=== PATIENT | female | born 2005 | race Caucasian/White ===

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

== ENCOUNTER 2025-05-10 17:31 | Outpatient (CLI) | payer OTHER, SELFPAY | END 2025-05-10 17:32 | disposition home or self-care (01) | LOC: AMB 05-13 10:32 | PROVIDERS: Visit Provider Family Medicine | DX: R41.82 Altered mental status, unspecified (principal); F03.90 Unspecified dementia, unspecified severity, without behavioral disturbance, psychotic disturbance, mood disturbance, and anxiety | CPT/HCPCS: A0425; A0427 ==

== ENCOUNTER 2025-05-10 17:56 | Emergency (ER) | payer OTHER, SELFPAY ==
[2025-05-10] VITALS (25 sets, daily range): BP systolic 119–145; BP diastolic 79–102; PULSE 99–144; RESP 0–26; TEMP 36.4; O2SAT 80–100
--- OUTSIDE RECORDS SUMMARY | 2025-05-10 17:58 | XMS_ITS | Data Portability ---
Author Organization ELAINE Lund NURSES DIRECTOR, [id number] Address [address] [place] [address] Care Team Providers Care Psychologist Military Personnel Name Role Phone TONNY HOLT Primary Care Provider [phone] Assessment Encounter Date Assessment Date Assessment LastModified [...] qual, IA, serum or plasma [address] [facility], [address] [place] [address], [address], [place], [address], 4 11:02:04 HBsAg (hepatitis B surface Ag), serum [address] [facility], [address], [address], [place], [address], 4 11:02:06 HIV 1+2 AB + HIV 1 p24 Ag, qualitative immunoassay , serum [address] [facility], [address], [address], [place], [address], 4 11:01:58 treponema pallidum Ab, qualitative , serum [address] [facility], [address], [address], [place], [address], 4 11:02:10 CT + NG DNA, PCR, unspecified specimen [address] [facility], [address], [address], [place], [address], 4 11:35:59 bacterial vaginosis + vaginitis panel, vaginal 2023 024 [id number]_skxwspj rtners_lilyda le, [address] [place] [address], [address] [place] [address], [address], 4 17:01:22 lipid panel, serum [address] [facility], [address], [address], [place], [address], 3 21:59:13 urinalysis, dipstick, auto 2022 023 Zm416_momklze rtners_lilyda le, [address] [place] [address], [address], [place], [address], 3 16:27:57 hemoglobin (Hb), blood 2022 023 Bz355_iadyiee rtners_lilyda le, [address] [place] [address], [address] [place] [address], [address], 3 16:27:57 test, urine 2022 023 [facility] Ze176_wjqbhmn gregg_flaca pak, [address] [facility], [address], [place], [address], 13:22:39 CT + NG DNA, PCR, unspecified specimen [address] [facility], [address], [address], [place], [address], 11:56:00 Referral None recorded. Procedures None recorded. Surgeries None recorded. Imaging None recorded. Medication Orders Loestrin Fe 1/20 (28-Day) 1 mg-20 mcg (21)/75 mg (7) tablet 2022 023 [facility], [address] [place], [place], [id number], 16:27:57 Loestrin Fe 1/20 (28-Day) 1 mg-20 mcg (21)/75 mg (7) tablet 2022 023 [facility], [address] [place], [place], [phone], 13:22:39 norethindro ne (contracept romain) 0.35 mg tablet 2021 022 [facility] #94195, [address] [place], [place], [phone], 13:50:26 Patient TargetsNo targets recorded. Patient Instructions Encounter Date Encounter Id Patient Instructions Last Modified By Organization Details Last Modified Time 08/21/2023 [id number] venous blood draw* Not available 08/21/2023 13:03:17 05/27/2024 [id number] venous blood draw* Not available 05/27/2024 13:30:10 [...] rRNA to be detec angus. Not Available [address], [place], [address], 01/30/2023 11:56:00 01/30/20 23 01/29/2023 GC/CH LAMYD [...] Urine Urine , Voide d Not Available [address], [place], [address], 01/30/2023 11:56:00 06/04/20 23 06/04/2023 pregn arminda test, urine Unknown Analyte negati ve Not Available Kayleigh pak [address] [place] [address] [address], [place], [address], 06/04/2023 12:22:07 06/04/20 23 06/04/2023 pregn arminda test, urine Unknown Analyte Negati ve Not Available Kayleigh mesaa le [address] [facility] [address], [place], [address], 06/04/2023 12:22:07 08/21/20 23 08/21/2023 LIPID PANEL cholesterol 150 mg/dL <170 Not Available [address], [place], [address], 08/21/2023 21:59:13 08/21/20 23 08/21/2023 LIPID PANEL triglyceride s 58 mg/dL <=90 Not Available [facility] [address], [place], [address], 08/21/2023 21:59:13 08/21/20 23 08/21/2023 LIPID PANEL direct measure HDL 84 mg/dL >=45 Not Available [facility] [address] [facility] [address], [place], [address], 08/21/2023 21:59:13 08/21/20 23 08/21/2023 LIPID PANEL LDL cholesterol calculated 54 mg/dL <=110 Not Available [facility] [address], [place], [address], 08/21/2023 21:59:13 08/21/20 23 08/21/2023 LIPID PANEL [...] or equal to 145 mg/dL Not Available [address], [place], [address], 08/21/2023 21:59:13 08/21/2008/21/2023 hemog lobin (Hb), blood hemoglobin, blood 12.5 g/dL 12.0-1 5.0 normal Not Available Fx684_dermaux rt[facility], [place], [address], 08/21/2023 13:02:54 08/21/2008/21/2023 urina lysis , dipst ick, auto Unknown Analyte Clean Catch Not Available Cl806_fuozt pa rtners[address], [place], [address], 07/24/2023 16:15:17 08/21/20 23 08/21/2023 urina lysis , dipst ick, auto Unknown Analyte negati ve Not Available Nw426_jaztt pa rtners[address], [place], [address], 07/24/2023 16:15:17 08/21/20 23 08/21/2023 urina lysis , dipst ick, auto Unknown Analyte negati ve Not Available Ul138_pomkh pa rtners[address], [place], [address], 07/24/2023 16:15:17 08/21/20 23 08/21/2023 urina lysis , dipst ick, auto Unknown Analyte negati ve Not Available Ih838_ufkld pa [facility]laura[address], [place], [address], 07/24/2023 16:15:17 08/21/20 23 08/21/2023 urina lysis , dipst ick, auto Unknown Analyte 1.020 Not Available CcStoney_ mageda rtregino [address], [place], [address], 07/24/2023 16:15:17 08/21/20 23 08/21/2023 urina lysis , dipst ick, auto Unknown Analyte negati ve Not Available Qf477_wntbv pa rtnersno[address], [place], [address], 07/24/2023 16:15:17 08/21/20 23 08/21/2023 urina lysis , dipst ick, auto Unknown Analyte 6.0 Not Available CcStoney_ mageda [facility]satya [address], [place], [address], 07/24/2023 16:15:17 08/21/20 23 08/21/2023 urina lysis , dipst ick, auto Unknown Analyte negati ve Not Available Lb089_vooiv pa rtnersej [address], [place], [address], 07/24/2023 16:15:17 08/21/20 23 08/21/2023 urina lysis , dipst ick, auto Unknown Analyte 0.2 Not Available CcStoney_ mageda rttetogarfield memorial hospitallaura[address], [place], [address], 07/24/2023 16:15:17 08/21/20 23 08/21/2023 urina lysis , dipst ick, auto Unknown Analyte negati ve Not Available Cj739_kkehx pa rtnersArtisgarfield memorial hospitalsatya [address], [place], [address], 07/24/2023 16:15:17 08/21/20 23 08/21/2023 urina lysis , dipst ick, auto Unknown Analyte negati ve Not Available Zi517_lhoxd pa que le [address] [place] [address] [address], [place], [address], 07/24/2023 16:15:17 08/21/20 23 08/21/2023 urina lysis , dipst ick, auto Unknown Analyte yellow Not Available CcStoney_ metropa que le [address] [place] [address] [address], [place], [address], 07/24/2023 16:15:17 08/21/20 23 08/21/2023 urina lysis , dipst ick, auto Unknown Analyte slight ly cloudy Not Available Al460_cgwyl pa que [address], [place], [address], 07/24/2023 16:15:17 05/27/20 24 05/27/2024 HIV ANTIG [...] RNA is recom gauri d. Not Available [address], [place], [address], 05/28/2024 11:01:58 05/27/20 24 05/27/2024 HEPAT ITIS [...] 8 to 9 weeks ). Not Available [address], [place], [address], 05/28/2024 11:02:04 05/27/20 24 05/27/2024 HEPAT ITIS B SURFA CE ANTIG EN hepatitis B surface antigen Nonrea ctive nonrea ctive Not Available [address], [place], [address], 05/28/2024 11:02:06 05/27/20 24 05/27/2024 TREPO NEMA ABS W REFLE X TO RPR AND CONF OR TITER treponema antibody total Nonrea ctive nonrea ctive Not Available [address], [place], [address], 05/28/2024 11:02:10 05/27/20 24 05/27/2024 GC/CH LAMYD [...] rRNA to be detec angus. Not Available [address], [place], [address], 05/28/2024 11:35:59 07/24/20 24 05/27/2024 GC/CH LAMYD IA BY PCR neisseria gonorrhoeae Negati ve negati ve Negat romain for N. gonor rhoea e rRNA by trans cript ion media angus ampli ficat ion. A negat romain resul t by trans cript ion media angsu ampli ficat ion does not precl ude the prese nce of C. trach omati s infec tion becau se resul ts are depen dent on prope r and adequ ate colle ction , absen ce of inhib itors and suffi cient rRNA to be detec angus. Not Available [address], [place], [address], 05/28/2024 11:35:59 05/27/20 24 05/27/2024 bacte rial vagin osis + vagin itis panel , vagin al gardnerella negati ve negati ve normal Not Available Ar402_zoufbrm rturi[address], [address], 05/27/2024 13:22:58 05/27/20 24 05/27/2024 bacte rial vagin osis + vagin itis panel , vagin al trichomonas negati ve negati ve normal Not Available Ce417_jilyzab[address], [address], 05/27/2024 13:22:58 05/27/2005/27/2024 bacte rial vagin osis + vagin itis panel , vagin al jef negati ve negati ve normal Not Available [id number], [address], 05/27/2024 13:22:58 Result Notes None recorded. Problems No Known Problems Procedures Surgical History Date Name Laterality Status Provider Name and Address Organization Details Recorded Time extraction of wisdom tooth completed Lawanda HENRY - NURSES DIRECTOR 05/27/2024 12:57:19 Imaging Results None recorded. Procedure [...] completed Not Available Not Available Not Available Depo-Cat Cracker Operator a 150 mg/mL intramuscul ar suspension Inject [...] Not Available Not Available Not Available Junel (21) 1.5 mg-30 mcg tablet TK 1 [...] mass index (BMI) Body mass index (BMI) [Percentile] Per age and sex Body height Heart rate Systolic And Diastolic Provider Name and Address Organization Details Last Updated DateTime 3 55936.1 9 g 20.7 kg/m2 45 % 170.18 cm 91 /min 108/64 mm[Hg] Lawanda Gerard [facility] NURSES DIRECTOR 3 13:52:07 Date Recorded Body weight Body mass index (BMI) Body mass index (BMI) [Percentile] Per age and sex Body height Systolic And Diastolic Provider Name and Address Organization Details Last Updated DateTime 03/14/2022 04231.08 g 18.8 kg/m2 23 % 170.18 cm 92/56 mm[Hg] Suresh Redding [facility] NURSES DIRECTOR 2 16:24:07 Date Recorded Body height Body mass index (BMI) [Percentile] Per age and sex Body mass index (BMI) Body weight Systolic And Diastolic Provider Name and Address Organization Details Last Updated DateTime 05/27/2024 170.18 cm 15 % 18.9 kg/m2 41946.9 6 g 113/72 mm[Hg] Lawanda HENRY [facility] NURSES DIRECTOR 4 12:59:36 Date Recorded Body weight Body mass index (BMI) Body mass index (BMI) [Percentile] Per age and sex Body height Systolic And Diastolic Provider Name and Address Organization Details Last Updated DateTime 06/04/2023 32439.45 g 19.4 kg/m2 25 % 170.18 cm 99/65 mm[Hg] Lawanda Gerard [facility] NURSES DIRECTOR 3 11:02:08 Date Recorded Body height Body mass index (BMI) Body mass index (BMI) [Percentile] Per age and sex Body weight Heart rate Systolic And Diastolic Provider Name and Address Organization Details Last Updated DateTime 170.18 cm 20.4 kg/m2 38 % 12009.0 1 g 81 /min 118/80 mm[Hg] Lawanda HENRY [facility] NURSES DIRECTOR 3 12:22:39 Social History Question Answer Notes LastModified by Organizat ion Details LastModified Time Tobacco Smoking Status Never Smoker Lawanda quiñonez [facility] NURSES DIRECTOR 05/27/2024 12:55:54 Do You Have An Advance Directive? No Does Not Have A Health Directive [id number] Information not available 09/06/2020 What Type Of Diet Are You Following? [...] Sexually Active? Yes Information not available 08/21/2023 Are You Currently In School? Yes Information not available 08/21/2023 Sex: Female Functional Status Question Answer Note LastModified by Organizat ion Details LastModified Time Do you use any illicit or recreational drugs? No Information not available 08/21/2023 What is your level of alcohol consumption? None Information not available 08/21/2023 What is your exercise level? Moderate Exercise on a Regular Basis [id number] Information not available 09/06/2020 Mental Status None [...] bone density Date of Last Pelvic Ultrasound 1 Age at Menarche: 12 History of Sexually Transmitted Infectio n N HPV Vaccine Complete Current Control Method Combined Or al Contraceptive History of Fibroids N Urinary Incontinence Symptoms N Date of Last Pap Smear Date of Last Cholesterol Screening 08/21 History of Dysmenorrhea Y History of HPV N Obstetrics History GPAL:G 0 P 0 0 0 0 Immunizations Vaccine Type Date Status Note Provider Nam e and Address Organization Details Recorded Time SARS-COV-2 (COVID-19) vaccine, UNSPECIFIED 2 completed Lawanda quiñonez, [place] - [facility] NURSES DIRECTOR 05/27/2024 12:53:48 HPV, quadrivalent 0 completed Lawanda quiñonez, [place] - [facility] NURSES DIRECTOR 05/27/2024 12:53:49 HPV9 0 completed Lawanda [place] null, [place] [facility] 05/27/2024 12:53:48 HPV9 0 completed Lawanda [place] null, [place] - [facility] NURSES DIRECTOR 05/27/2024 12:53:48 COVID-19, mRNA, LNP-S, PF, 30 mcg/0.3 mL dose 1 completed Lawanda Rajani null, [place] - [facility] NURSES DIRECTOR 05/27/2024 12:53:48 COVID-19, mRNA, LNP-S, PF, 30 mcg/0.3 mL dose, nicole-sucrose 2 completed Lawanda Rajani null, [place] - [place] NURSES DIRECTOR 05/27/2024 12:53:48 Tdap 8 completed Lawanda [place] null, [facility] NURSES DIRECTOR 05/27/2024 12:53:48 varicella 9 completed Lawanda [place] null, [place] - [place] NURSES DIRECTOR 05/27/2024 12:53:48 varicella 8 completed Lawanda Raj[place] NURSES DIRECTOR 05/27/2024 12:53:48 rabies, intramuscular injection 2 completed Lawanda [place], [place] NURSES DIRECTOR 05/27/2024 12:53:48 rabies, intramuscular injection 2 completed Lawanda Rajani null, [facility] NURSES DIRECTOR 05/27/2024 12:53:48 rabies, intramuscular injection 2 completed Lawanda [place] null, [place] - [place] NURSES DIRECTOR 05/27/2024 12:53:49 rabies, intramuscular injection 2 completed Lawanda [place] null, [place] NURSES DIRECTOR 05/27/2024 12:53:49 Meningococcal MCV4O 8 completed Lawanda [place] null, [place] - [place] NURSES DIRECTOR 05/27/2024 12:53:49 Past Encounters Encounter ID Performer Location Encounter Start Date Encounter Closed Date Diagnosis/Indication Diagnosis SNOMED-CT Code Diagnosis ICD10 Code Diagnosis Note [id number] GABRIELLE CABELLO MD [id number] RO_[place] [address] [place] [address] 01/04/2021 16:27:22 01/10/2021 13:40:13 Nausea and vomiting 97335936 R11.2 NEEDS TO SEE GI AND CAN ONLY DUE LIQUIDS AND WILL DRAW LABS --/ANXIETY RELATED BUT STILL NEEDS TO SEE GI UNLESS BETTER WITH ZOLOFT--ST OP ZOFRAN AND OK WITH REGLAN ALSO CONSTIPATE D AND MAY HELP WITH MOTILITY Nausea 030952833 R11.0 Dysmenorrhea 032909009 N 94.6 HAD BEEN OFF OCP FOR DYSMENORRH EA AND REV GOING BACK ON AND DIDNT FEEL GOOD ON AND BTB ON 11/23 BUT FELT EMOTIONALL Y OK--REV FIRST ZOLOFT AND IF BETTER THAN OK TO START OCP Mixed anxi ety and depressive disorder 653378395 F41.8 AT HOME WITH COVID AND PROGRAM WHERE SHE CANT GO BACK UNTIL NEXT YR BUT PT STATES WOULD FEEL BETTER GOING BACK SO REV LET US NKNOW IF NEEDS NOTE TO HELP--BROK E UP WITH BOYFRIEND AND NOW HERE BFF WONT TALK TO HER AND STARTED CRYING AND REV COUNSELING AND MEDS AND MOM IN ROOM AND POT SOUNDS LIKE SHE WILL DO RBA REV AND WILL START LOW DOSE ZOLOFT AND IF BETTER CAN INCREASE AND RTC 6 WKS--25 MIN IN COUNSELING [id number] Gabrielle Cabello MD [id number] MATT S_SAJANBUR Y [address] [place] [address] 10/19/2021 11:01:57 10/19/2021 20:02:04 Contraception care management 903600894 Z30.9 on ocp for menorrhagi a and cramps and states still heavy but changes tampon q 4 hrs and using tylenol for pain--rec motrin 400bid with sl spotting and increaseto 600 tid with flow--also will dec to 11/23 because even on having btb so will try 11/23 but if cont will consider depo or ?iud--rba rev --conodms rev and has had guardisil and rec covid vaccine--2 0 min rev old records and prev ocp and us and counseling Abnormal u terine bleeding 5321783230 9100 N93.9 [id number] Gabrielle Cabello MD [id number]_AWQ MATT GASPAR Y Tonio [address] [place] [address] 10/19/2021 10:06:45 10/19/2021 10:31:55 Menorrhagia 835044047 N92.0 [id number] Gabrielle Cabello MD UU390_KIX MATT GASPAR Y Tonio KINMUNDYHyperpiaMILIND DENIS,[address] [place] [address] 03/14/2022 16:05:28 03/15/2022 13:08:39 Contraception care management 239056276 Z30.9 on ocp for menorrhagi a and cramps and states still heavy but changes tampon q 4 hrs and using tylenol for pain--rec motrin 400bid with sl spotting and increaseto 600 tid with flow--also will dec to 11/23 because even on having btb so will try 11/23 but if cont will consider depo or ?iud--rba rev --conodms rev and has had guardisil and rec covid vaccine--2 0 min rev old records and prev ocp and us and counseling --03/14/22- HERE WITH MOM AND STOPPED OCP LAST MTH CECILY TO CONT BLEEDING Q 2 WKS AND WANTS TO TRY DEPO-RBA REV AND DID LOOSE 30 LBS WITH STRESS AND 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 AND ON MEDS AND DOING BETTER--PT IS SA BUT NOT FOR A FEW MTHS AND USING CONDOMS RELIGIOUSL Y AND NO INTERCOURS E X 2 MTHS--REV OK WITH DEPO BUT CAN HAVE AN EFFECT ON MOODS SO REC MINIPILL X 1 MTH AND START AFTER NEXT MENSES AND NOT USED FOR BC SO ABSOLUTELY NEEDS CONDOMS--I F NO ISSUES OK WITH DEPO IN MAY AND SEE ME THEN--RBA REV History of eating disorder 7683361572 46628 Z86.59 PT STATES HAS BEEN SL BULLEMIC IN PAST BUT LESS STRESS NOW AND DOING BETTER AND TRYING TO GAIN WT--EATS 2 MEALS QD AND HAS NEVER REALLY EATEN BREAKFAST- -ENCOURAGE D TO CONT WT GAIN AND NOT ADVERSE TO PASTA SO REV EATING AND COUNSELING --PT STATES HAPPIER NOW WITH MOM AND DAD ADN ONLY SEES DAD WHEN WANTS AND HAS A BETTER [facility] IP NOW THAT SHE DOESNT LIVE WITH HIM. HAPPY ABOUT UPCOMING SUMMER AND WORKING AT [employer] AND NOT STRESSED ABOUT FINALS [id number] Gabrielle Cabello MD [id number] MATT CAMACHO E [address] [facility],[place] [address] [place] [address] 01/29/2023 13:27:25 01/30/2023 09:27:58 Contraception care management 709651806 Z30.9 HAS BF AND DID HAVE INTERCOURS E X 1 LAST YR AND NONE SINCE AND PAINFUL--- HAS BEEN ON OCP FOR HEAVY MENSES AND SPOTTED ON 11/23 AND AND DID 2 DOSES OF DEPO AT [facility] --RBA REV AND FIRST NEEDS US AND LAST DEPO DONE AND NOW NO BLEEDING X 2 WKS --REC US END OF MENSES AND AGREES TO EXAM AT THAT TIME--REV EXAM TODAY AND STARTED CRYING AND DISCUSS EXAM AND WILL DO WITH US--CONDOM S REV AND HAS AHD GUARDISIL AND BF NO PREV PARTNERS Venereal d isease screening 330198879 Z11.3 [id number] Gabrielle Cabello MD [id number]_JYJ MATT CAMAHCO E [address] [place] [address] [place] [address] 06/04/2023 10:34:29 06/05/2023 17:39:16 Contraception care management 062483844 Z30.9 MOM OUT OF ROOM--IS SA WITH SAME NOW X 2 YRS --PREV ONLY INTERCOURS E X 1 AND HURT BUT NOW NO PAIN AND WANTS BC--HAD PROB WITH IRREG BLEEDING AND NO BLEEDING BUT NOW MENSES REG AND NO PROB AND REQ OCP--RBA REV AND NO RF ADN CONDOMS UNTIL ONLY BLEEDS WHEN SHOULDL AND ENCOURAGED CONDOME BACKUP---D EC HOT METAL CHARGER EXAM SO WILL DO 3 MTHS BUT NEEDS EXAM AND STATES SHE WILL DO ON FU VISIT--MOM WILL CHECK IF COMPLETED GUARDISIL [id number] Gabrielle Cabello MD MF528_EGA MATT CAMACHO E [address] [place] [address] [place] [address] 08/21/2023 11:46:08 08/21/2023 14:14:07 Gynecologic examination 78914550 Z01.419 SA SAME X 2 YRS AND NEITHER HAVE HAD OTHER PARTNERS AND HAPPY WITH OCP Contracept ion care management 114864687 Z30.9 Hyperlipid emia screening 094710710 Z13.220 Anemia screening 5447188 07 Z13.0 Dysmenorrhea 669506991 N 94.6 IMPROVED ON OCP AND DOING WEL AND WANTS TO CONT OCP [id number] Gabrielle Cabello MD PI598_[facility] S_LILYDAL E [address] [facility] [place] [address] 05/27/2024 12:39:13 05/27/2024 15:08:12 Contraception care management 489444466 Z30.9 bleeds heavy for 2 days changing tampon q 2 hrs for 2 days and hoping on ocp would be less so will try 11/13 if pd for x 3 mths Venereal d isease screening 815866630 Z11.3 had intercours e with a new person and did use condoms so testing done and std rev and has had guardisil Health Concerns Section Related Observation LastModified by Organization Detai ls LastModified Time None Recorded Concern Status LastModified by Organization Details LastModified Time None Recorded Advance Directives Directive N: Does Not have a Health Di rective Payers Insurance Date Sequence Insurance Name Policy Number Policy Hoskins Covered Member ID Hoskins Member ID Guarantor Name 08/29/2023 1 [employer] [id number] Paris Martinez [id number] Aman Martinez Notes Date Note Type Note Provider Name and Address Organization Details Recorded Time 03/14/2022 text/html The patient pres ents to the office today requesting an alternative control method . The patient is not using any current method of control. This is the patient's subsequent/follow up visit for this issue at [facility] NURSES DIRECTOR. Her LMP is 02/23/22 They are irregular occur every 28 days and last for a normal length of time. Her flow is medium She denies dysmenorrhea. The patient states she is dissatisfied with her current method of control: desires to start depo The patient's past medical history is [place] [id number], [place], [address], [place] - [facility] NURSES DIRECTOR 03/14/2022 22:57:28 01/29/2023 text/html The patient pres ents to the office today requesting control counseling [...] medical history is [place] [id number], [place], [address], [facility] - [facility] NURSES DIRECTOR 01/29/2023 21:11:45 06/04/2023 text/html The patient presents to the office today requesting control counseling .The patient is not using any current method of control.Her LMP is 05/30/2023 They are regular occur every 28-30 days and last for a normal length of time.Her flow is mediumShe denies dysmenorrhea. The patient states she is interested in starting contraceptionThe patient's past medical history is non-[place] [id number], [place], [address], [place] - [facility] NURSES DIRECTOR 06/04/2023 22:36:58 08/21/2023 text/html This is a 18 yea r old female, whose LMP was 08/19/2023, and she is present today for her annual exam. Her menses are regular. She has had no spotting and denies dysmenorrhea. She is sexually active. She reports no problems with intercourse. She is using loestrin 11/23. She is having no additional global cmo symptoms. She has not had a history of abnormal pap smears. Pt requests STI testing: [place] [id number], [place], [address], [place] - [facility] NURSES DIRECTOR 08/21/2023 13:07:09 05/27/2024 text/html The patient pres ents to the office today requesting control counseling .The patient is using blisovi 11/23 as her current method of contraception.This is the patient's subsequent/follow up visit for this issue at [facility] NURSES DIRECTOR.Her LMP is 05/21/2024 The patient's past medical history is non-[place]. [place] [id number] [facility],[address], [place], [address], [facility] 05/27/2024 13:31:12 OBGyn Episode No OBEpisode recorded.
--- OUTSIDE RECORDS SUMMARY | 2025-05-10 17:58 | XMS_ITS | Clinical Summary ---
Author Organization [facility] Address [address] [place] [address] Care Team Providers Care Barrel Header Name Role Phone Unavailable Primary Care Provider Unavailabl e Source Comments Patient records contain information from all sites at [facility]. For routine questions regarding patient records, call [phone] during business hours, M-F 8:00 AM - 5:00 PM Central Time. Record requests for emergency care only can be directed to [phone] at any time.[facility] Allergies No known active allergies Medications * This document contains information received from the source organization and may not represent a complete record from that organization. No known medications Social History Tobacco Use Types Packs/Day Years Used Date Smoking Tobacco: Never Assessed [facility] Utilities Answer Date Recorded In the past 12 months has th e electric, gas, oil, or water company threatened to shut off services in your home? No 01/29/2024 Hunger Vital Sign Answer Date Recorded [...] things needed for daily living? Yes 01/29/2024 Housing Stability Answer Date Recorded What is your living situation today? I have a [facility] place to live 01/29/2024 Comments Unknown Sex and Gender Information Value Date Recorded Sex Assigned at Female 12/24/2023 11:03 AM MATERIAL EXPEDITOR Legal Sex Female 10:59 AM MATERIAL EXPEDITOR Gender Identity Female 12/24/2023 11:03 AM MATERIAL EXPEDITOR Sexual Orientation Straight 12/24/2023 11 :03 AM MATERIAL EXPEDITOR Plan of Treatment Health Maintenance Due Date Last Done Comments Chlamydia and Gonorrhea Screening 2005 HIV Screening 2005 Hearing Screening during Well Child Visit 2005 Hepatitis C Screening 2005 TB Screening during Well Child Visit 2005 1 week Well Child Check-Up 2005 1 month Well Child Check-Up 2005 2 month Well Child Check-Up 2005 4 month Well Child Check-Up 2005 9 month Well Child Check-Up 03/21/2006 15 month Well Child Check-Up 09/21/2006 18 month Well Child Check-Up 12/22/2006 2 year Well Child Check-Up 06/21/2007 30 month Well Child Check-Up 12/22/2007 3 year Well Child Check-Up 06/21/2008 Well Child Check-Up Completed in Past Year 06/21/2008 5 year Well Child Check-Up 06/21/2010 6 year Well Child Check-Up 06/21/2011 7 year Well Child Check-Up 06/21/2012 8 year Well Child Check-Up 06/21/2013 10 year Well Child Check-Up 06/21/2015 12 year Well Child Check-Up 06/21/2017 13 year Well Child Check-Up 06/21/2018 MMR Vaccines (1 of 1 - Standard series) 12/25/2018 14 year Well Child Check-Up 06/21/2019 Vision Screening during Well Child Visit 2019 15 year Well Child Check-Up 06/21/2020 HPV Vaccines (2 - 2-dose series) 08/19/2020 05/27/2020, 01/13/2020, 01/13/2020 17 year Well Child Check-Up 06/21/2022 18 year Well Child Check-Up 06/21/2023 19 year Well Child Check-Up 06/21/2024 Well Child Check-Up (WC) 06/21/2024 COVID-19 Vaccine ( - season) 2024 11/15/2021, 10/25/2021 Hepatitis B Vaccines (1 of 3 - 19+ 3-dose series) 2024 Depression Screening (Annual PHQ-2) 11/04/2024 Influenza Vaccine (#1) 2025 DTaP,Tdap,and Td Vaccines (2 - Td or Tdap) 06/17/2028 06/17/2018 Meningococcal Vaccine Aged Out 06/17/2018 No maria elena agustín eligible based on patient's age to complete this topic Varicella Vaccines Completed 11/27/2018, 06/17/2018 Anemia/Iron Deficiency Screening During Well Child Visit (if High Risk Menstruating Female) Completed 11/05/2023, 03/22/2022, 11/28/2021, Additional history exists IPV Vaccines Aged Out No longer eligi ble based on patient's age to complete this topic Pneumococcal vaccine (0-49 years) Aged Out No longer eligible based on patient's age to complete this topic Insurance [facility] [place] [id number] [facility] Address: [facility] [id number] [address] [place] [id number]
--- OUTSIDE RECORDS SUMMARY | 2025-05-10 17:59 | XMS_ITS | Clinical Summary ---
Author Organization [facility] Address [address] [place] [address] Care Team Providers Care Stock Worker Name Role Phone Pcp, No Primary Care Provider Unavailabl e Allergies No known active allergies Medications doxycycline monohydrate 50 mg capsule Take 100 mg by mouth once daily. 5 Active nortriptyline 25 mg capsuleIndications: Chronic insomnia Take 1 Capsule (25 mg) by mouth at bedtime. 90 Capsule 3 5 Active ondansetron 4 mg disintegrating tabletIndications:N ausea and vomiting, unspecified vomiting type Place 1 Tablet (4 mg) on the tongue every 8 hours if needed for Nausea/Vomit ing. 30 Tablet 03/23/2025 11:18 AM CDT 5 Active pantoprazole 40 mg delayed-release tabletIndications:G astroesophageal reflux disease, unspecified whether esophagitis present Take 1 Tablet (40 mg) by mouth two times daily before meals. 60 Tablet 03/23/2025 11:18 AM CDT 5 05/22/20 25 Active Active Problems Problem Noted Date Diagnosed Date Alcohol abuse with withdrawal, unspecified 03/22 Cannabis dependence 03/01/2025 Depression, major, single episode, moderate 02/02 Anxiety 02/19/2022 Delayed immunizations 05/20/2012 Encounters Date Type Department Care Team Description 03/22/2025 1:22 PM CDT - 03/23/2025 11:56 AM CDT Hospital Encounter [facility] [address] [facility] [place] [address] Venkat Mcgregor MD Le, Hung C, MD Kennedy Laliberte, Elizabeth Maureen, PA Nguyen, Brandon Nhat, DO Hospitalists, Stf Nausea and vomiting in adult (Primary Dx); Dehydration; Metabolic acidosis, increased anion gap; Alcohol use; Nausea and vomiting, unspecified vomiting type; Gastroesophageal reflux disease, unspecified whether esophagitis present; Low serum phosphate Discharge Disposition: Home Self Care 03/22/2025 12:38 PM CDT - 03/22/2025 1:02 PM CDT Emergency [facility] [address] [place] [phone] Jane Jimenez MD Coffee ground emesis (Primary Dx) Discharge Disposition: Short Term/PPS Hosp 03/22/2025 Travel 02/26/2025 1:50 PM CDT Office Visit [facility] [address] [place] [address] Eduarda Warner PA Sleep Problem (Can't fall asleep and when she does she can't stay asleep-has been an issue for 3-4 years but has had help with this in the past-used to take mirtazepine ) 02/25/2025 Travel from Last 3 Months Immunizations Immunization Administration Dates Next Due COVID-19 vaccine ([employer] 30mcg/0.3mL) 12YO+ RAPHAEL-SUCROSE PF, MDV 11/15/2021 COVID-19 vaccine ([employer] 30mcg/0.3mL) PF, MDV 10/25/2021 HPV 9 [...] Given: Yes Alcohol Use Standard Drinks/Week Comments Not Currently 0 (1 standard drink = 0.6 oz pur e alcohol) PHQ-2 Answer Date Recorded PHQ-2 TOTAL SCORE 2 02/26/2025 Social Connections Answer Date Recorded Do you often feel lonely or isolated from those around you? 0 03/22/2025 Financial Resource Strain Answer Date R ecorded Difficulty of Paying Living Expenses 3 02/26/2025 Difficulty of Paying Living Expenses Not on file 02/26/2025 Food Insecurity Answer Date Recorded Do you worry your food will run out before you are able to buy more? 1 03/22/2025 Transportation Needs Answer Date Record ed Does lack of transportation keep you from medica l appointments? 1 03/22/2025 Does lack of transportation keep you from work, meetings or getting things that you need? 1 03/22/2025 Housing Stability Answer Date Recorded What is your housing situation today? 1 03/22/2025 Interpersonal Safety Answer Date Record ed Are you being hit, kicked, p ushed or yelled at (see row info)? No 03/22/2025 Interpersonal Safety Abuse 12 - 18 Not on file 03/22/2025 Interpersonal Safety Ambulatory Vulnerability No t on file 03/22/2025 Utilities Answer Date Recorded Do you have trouble paying f or utilities (for example, heat, electricity, water, phone)? 1 03/22/2025 Comments No Sex and Gender Information Value Date Recorded Sex Assigned at Not on file Legal Sex Female 7:11 AM ORGANIZATIONAL DEVELOPMENT CONSULTANT Gender Identity Not on file Sexual Orientation Not on file Obstetrics History Last Filed Vital Signs Vital Sign Reading Time Taken Comments Blood Pressure 107/63 03/23/2025 8:20 AM CDT Pulse 116 03/23/2025 8:20 AM CDT Temperature 36.9 C (98.4 F) 03/23/2025 8:20 AM CDT Respiratory Rate 16 03/23/2025 8:20 AM CDT Oxygen Saturation 98% 03/23/2025 8:20 AM CDT Inhaled Oxygen Concentration - - Weight 56.5 kg (124 lb 9.6 oz) 03/22/2025 5:03 P M CDT Height 172.7 cm (5' 8) 03/22/2025 1:16 PM CDT Body Mass Index 18.95 03/22/2025 1:16 PM CDT Plan of Treatment Health Maintenance Due Date Last Done Comments Well Child Check for age 3-20 06/17/2019 06/17/2018 HIV for age 15-65 2020 HPV series for age 9-26 (2 - 2-dose series) 08/19/2020 05/27/2020, 01/13/2020, 01/13/2020 BMI (ht and wt on same day) for age 18+ 2023 Hepatitis C screening for age 18-79 2023 COVID-19 vaccine series (3 - 2023- season) 2024 11/15/2021, 10/25/2021 Hepatitis B series for 19+ (1 of 3 - 19+ 3-dose series) 2024 Influenza Vaccine (#1) 2025 Depression screening for age 12+ 02/26/2026 02/26/2025, 05/29/2022, 03/22/2022, Additional history exists Tetanus booster 06/17/2028 06/17/2018 Meningococcal series for age 11-21 Aged Out 06/17/2018 No longer eligible based on patient's age to complete this topic Pneumococcal series for age 6-49 Aged Out No longer eligible based on patient's age to complete this topic Procedures Procedure Name Priority Date/Time Associated Diagnosis Comments DRUG SCREEN RAPID URINE INHOUSE Today 03/23/2025 10:02 AM CDT BASIC METABOLIC PANEL Early AM 03/23/2025 6:02 AM CDT PHOSPHORUS Early AM 03/23/2025 6:02 AM CDT VITAMIN D 25 (DEFICIENCY) Early AM 03/23/2025 6:02 AM CDT VITAMIN B12 Early AM 03/23/2025 6:02 AM CDT CBC W PLT NO DIFF Early AM 03/23/2025 6:0 1 AM CDT BASIC METABOLIC PANEL Today 03/22/2025 9:50 PM CDT HEMOGLOBIN Today 03/22/2025 9:50 PM CDT URINALYSIS MICROSCOPIC STAT 5:04 PM CDT UA W/ SEDIMENT EXAM REFLEXED PER CRITERIA STAT 03/22/2025 5:04 PM CDT VOLATILES SCREEN STAT 03/22/2025 3:50 PM CDT MAGNESIUM JEY 03/22/2025 2:04 PM CDT ACETAMINOPHEN STAT 03/22/2025 2:04 PM CDT SALICYLATE STAT 03/22/2025 2:04 PM CDT ,SERUM QUALITATIVE STAT 03/22/2025 2:04 PM CDT HEPATIC FUNCTION PANEL STAT 2:04 PM CDT LIPASE STAT 03/22/2025 2:04 PM CDT CBC W PLT NO DIFF STAT 03/22/2025 2:0 4 PM CDT ETHANOL SERUM OR PLASMA STAT 03/22/2025 2:04 PM CDT BASIC METABOLIC PANEL STAT 03/22/2025 2:04 PM CDT EKG 12 LEAD STAT 03/22/2025 1:23 PM CDT SCAN-CARDIAC STRIP 03/22/2025 12 :00 AM CDT SCAN-CARDIAC STRIP 03/22/2025 12 :00 AM CDT from Last 3 Months Results * (ABNORMAL) DRUG SCREEN RAPID URINE INHOUSE (03/23/2025 10:02 AM CDT) Pathologist [facility] THC METABOLITES,KAITLYNN L Non-negative , consider further testing if indicated(A) Not Detected 03/23/2025 10:22 AM CDT [facility] PCP,QUAL Not Detected Not Detected 03/23/2025 10:22 AM CDT [facility] COCAINE,QUAL Not Detected Not Detected 03/23/20 10:22 AM CDT [facility] METHAMPHETAMINE , QUALITATIVE Not Detected Not Detected 03/23/2025 10:22 AM CDT [facility] OPIATES,QUAL Not Detected Not Detected 03/23/20 10:22 AM CDT [facility] AMPHETAMINE, QUALITATIVE Not Detected Not Detected 03/23/2025 10:22 AM CDT [facility] BENZODIAZEPINES ,QUAL Non-negative , consider further testing if indicated(A) Not Detected 03/23/2025 10:22 AM CDT [facility] TRICYCLICS,QUAL Non-negative , consider further testing if indicated(A) Not Detected 03/23/2025 10:22 AM CDT [facility] METHADONE, QUALITATIVE Not Detected Not Detected 03/23/2025 10:22 AM CDT [facility] BARBITURATES,QU AL Not Detected Not Detected 03/23/2025 10:22 AM CDT [facility] OXYCODONE, QUALITATIVE Not Detected Not Detected 03/23/2025 10:22 AM CDT [facility] BUPRENORPHINE, QUALITATIVE Not Detected Not Detected 03/23/2025 10:22 AM CDT [facility] Urine URINE SPECIMEN / Unknown Non-Blood / Unknown 03/23/2025 10:02 AM CDT 03/23/2025 10:05 AM CDT Narrative [facility] - 03/23/2025 10:22 AM CDT Please Note: This is a screening test only, all results are unconfirmed and should be used for medical purposes only. Unconfirmed results must not be used for non-medical purposes (e.g., employment testing, legal testing). Suggest analyte specific confirmation for all non-negative results. Specimens will be held for 24 hours if additional testing is needed. The following threshold concentrations are used for this analysis: Drug Screening Threshold Buprenorphine 10 ng/mL PCP 25 ng/mL THC Metabolites 50 ng/mL *Opiates 100 ng/mL Oxycodone 100 ng/mL Cocaine 150 ng/mL Benzodiazepines 150 ng/mL Methadone 200 ng/mL Barbiturates 200 ng/mL Tricyclic Antidepressants 300 ng/mL Amphetamines 500 ng/mL Methamphetamines 500 ng/mL *Includes related compounds: Codeine 50 ng/mL Heroin 100 ng/mL Morphine 100 ng/mL Hydrocodone 400 ng/mL Hydromorphone 800 ng/mL Venlafaxine (Effexor) is a known cross reactant in the PCP assay. If clinically indicated, order PCP confirmation. Nicole Connor NP URINE Final Result [address] [address] * (ABNORMAL) VITAMIN D 25 (DEFICIENCY) (03/23/2025 6:02 AM CDT) VITAMIN D TOTAL 16.3(L) 20.0 - 80.0 ng/mL 03/23/2025 1:51 PM CDT [facility] Blood BLOOD SPECIMEN / Unknown Venipuncture / Unknown 03/23/2025 6:02 AM CDT 03/23/2025 6:18 AM CDT Narrative [facility] - 03/23/2025 1:51 PM CDT Vitamin D Status Deficiency: <20 ng/mL Insufficiency: 20-29 ng/mL Sufficiency: 30-80 ng/mL Possible Toxicity: >80 ng/mL Based on [place] [employer] recommendations Biotin supplements may cause clinically significant interference for this test assay. If interference is suspected, it is strongly recommended that biotin is discontinued for at least one week prior to retesting. Tito Mar MD SEND OUTS Final Result Performing Organization Address City/[facility]/ZIP Co de Phone Number [facility] [address] [place] [id number], [place] * (ABNORMAL) PHOSPHORUS (03/23/2025 6:02 AM CDT) PHOSPHORUS 1.6(L) 2.5 - 4.5 mg/dL 03/23/2025 6:44 AM CDT [facility] Blood BLOOD SPECIMEN / Unknown Venipuncture / Unknown 03/23/2025 6:02 AM CDT 03/23/2025 6:17 AM CDT Tito Mar MD CHEMISTRY Final Result Performing Organization Address [facility] Co de Phone Number [address] [address] * VITAMIN B12 (03/23/2025 6:02 AM CDT) VITAMIN B12 420 232 - 1,245 pg/mL 03/23/2025 1:51 PM CDT [facility] Blood BLOOD SPECIMEN / Unknown Venipuncture / Unknown 03/23/2025 6:02 AM CDT 03/23/2025 6:18 AM CDT Narrative [facility] - 03/23/2025 1:51 PM CDT Biotin supplements may cause clinically significant interference for this test assay. If interference is suspected, it is strongly recommended that biotin is discontinued for at least one week prior to retesting. Tito Mar MD CHEMISTRY Final Result Performing Organization Address City/[facility]/ZIP Co de Phone Number [facility] [address] [place] [id number], * (ABNORMAL) BASIC METABOLIC PANEL (03/23/2025 6:02 AM CDT) Only the most recent of3 resultswithin the time period is included. SODIUM 134(L) 136 - 145 mmol/L 03/23/2025 6:44 AM T [facility] POTASSIUM 4.0 3.5 - 5.1 mmol/L 03/23/2025 6:44 AM T [facility] CHLORIDE 101 98 - 107 mmol/L 03/23/2025 6:44 AM T [facility] CO2,TOTAL 25 22 - 29 mmol/L 03/23/2025 6:44 AM T [facility] ANION GAP 8 5 - 18 03/23/2025 6:44 AM CDT [facility] GLUCOSE 88 70 - 99 mg/dL 03/23/2025 6:44 AM T [facility] CALCIUM 8.5(L) 8.8 - 10.4 mg/dL 03/23/2025 6:44 AM T [facility] Comment: Reference ranges for this test were updated on 09/08/2024 to reflect our healthy population more accurately. Reference range changes are not retroactively applied to results, but previous results using the same methodology can be interpreted in the context of the new reference range. BUN 12 6 - 20 mg/dL 03/23/2025 6:44 AM T [facility] CREATININE 0.58 0.50 - 0.90 mg/dL 03/23/2025 6:44 AM [facility] BUN/CREAT RATIO 21(H) 10 - 20 6:44 AM [facility] eGFR >90 >90 mL/min/1.7 3m2 03/23/2025 6:44 AM [facility] Comment:As of 2022, eG FR is calculated by the CKD-EPI creatinine equation without race adjustment. eGFR can be influenced by muscle mass, exercise, and diet. The reported eGFR is an estimation only and is only applicable if the renal function is stable. Blood BLOOD SPECIMEN / Unknown Venipuncture / Unknown 03/23/2025 6:02 AM CDT 03/23/2025 6:17 AM CDT Tito Mar MD CHEMISTRY Final Result [facility] [address] [place] [address] * (ABNORMAL) CBC W PLT NO DIFF (03/23/2025 6:01 AM CDT) Only the most recent of2 resultswithin the time period is included. WHITE BLOOD COUNT 11.0 4.5 - 11.0 thou/cu mm 03/23/2025 6:21 AM CDT [facility] RED BLOOD COUNT 3.74(L) 4.00 - 5.20 mil/cu mm 03/23/2025 6:21 AM CDT [facility] HEMOGLOBIN 11.8(L) 12.0 - 16.0 g/dL 03/23/2025 6:21 AM CDT [facility] HEMATOCRIT 34.7 33.0 - 51.0 % 03/23/2025 6:21 AM CDT [facility] MCV 93 80 - 100 fL 03/23/2025 6:21 AM CDT [facility] MCH 31.6 26.0 - 34.0 pg 03/23/2025 6:21 AM CDT [facility] MCHC 34.0 32.0 - 36.0 g/dL 03/23/2025 6:21 AM CDT [facility] RDW 12.2 11.5 - 15.5 % 03/23/2025 6:21 AM CDT [facility] PLATELET COUNT 204 140 - 440 thou/cu mm 03/23/2025 6:21 AM CDT [facility] MPV 11.3(H) 6.5 - 11.0 fL 03/23/2025 6:21 AM CDT [facility] NRBC 0.0 % 03/23/2025 6:21 AM CDT [facility] ABS NRBC 0.0 thou /cu mm 03/23/2025 6:21 AM CDT [facility] Blood BLOOD SPECIMEN / Unknown Venipuncture / Unknown 03/23/2025 6:01 AM CDT 03/23/2025 6:17 AM CDT Nicole Connor NP HEMATOLOGY Final Result [address] [address] * HEMOGLOBIN (03/22/2025 9:50 PM CDT) HEMOGLOBIN 12.2 12.0 - 16.0 g/dL 03/22/2025 9:59 PM CDT [facility] MCV 92 80 - 100 fL 03/22/2025 9:59 PM CDT [facility] Blood BLOOD SPECIMEN / Unknown Venipuncture / Unknown 03/22/2025 9:50 PM CDT 03/22/2025 9:51 PM CDT us Nicole Connor NP HEMATOLOGY Final Result Performing Organization Address [facility] de Phone Number [address] [address] * (ABNORMAL) URINALYSIS MICROSCOPIC (03/22/2025 5:04 PM CDT) RBC 0-2 0-2, None Seen /HPF 03/22/2025 5:18 PM CDT [facility] WBC 3-5 0-2, 3-5, None Seen /HPF 03/22/2025 5:18 PM CDT [facility] BACTERIA Moderate(A) None Seen, Rare, Few Bacteria/ HPF 03/22/2025 5:18 PM CDT [facility] EPITHELIAL CELLS Many(A) None Seen, Few Epi/HPF 03/22/2025 5:18 PM CDT [facility] Mucus Present 03/22/2025 5:18 PM CDT [facility] HYALINE CASTS 0-2 0-2, 3-5 /LPF 03/22/2025 5:18 PM CDT [facility] Urine URINE SPECIMEN / Unknown Non-Blood / Unknown 03/22/2025 5:04 PM CDT 03/22/2025 5:04 PM CDT us Venkat Mcgregor MD URINE Final Res ult Performing Organization Address City/[facility]/ZIP Co de Phone Number [address] [place] [address] * (ABNORMAL) UA W/ SEDIMENT EXAM REFLEXED PER CRITERIA (03/22/2025 5:04 PM CDT) COLOR Yellow Yellow Color 03/22/2025 5:07 PM CDT [facility] CLARITY Cloudy(A) Clear Clarity 03/22/2025 5:07 PM CDT [facility] SPECIFIC GRAVITY,URINE >=1.030(A) 1.010, 1.015, 1.020, 1.025 03/22/2025 5:07 PM CDT [facility] PH,URINE 6.0 6.0, 7.0, 8.0, 5.5, 6.5, 7.5, 8.5 03/22/2025 5:07 PM CDT [facility] UROBILINOGEN, QUALITATIVE Normal Normal EU/dl 03/22/2025 5:07 PM CDT [facility] PROTEIN, URINE 100(A) Negative mg/dL 03/22/2025 5:07 PM CDT [facility] GLUCOSE, URINE Negative Negative mg/dL 03/22/2025 5:07 PM CDT [facility] KETONES,URINE 40(A) Negative mg/dL 03/22/2025 5:07 PM CDT [facility] BILIRUBIN,URI NE Negative Negative 03/22/2025 5:07 PM CDT [facility] OCCULT BLOOD,URINE Negative Negative 03/22/2025 5:07 PM CDT [facility] NITRITE Negative Negative 03/22/2025 5:07 PM CDT [facility] LEUKOCYTE ESTERASE Negative Negative 03/22/2025 5:07 PM CDT [facility] Urine URINE SPECIMEN / Unknown Non-Blood / Unknown 03/22/2025 5:04 PM CDT 03/22/2025 5:04 PM CDT us Venkat Mcgregor MD URINE Final Res ult [address] [address] * (ABNORMAL) VOLATILES SCREEN (03/22/2025 3:50 PM CDT) Volatile Screen Blood 7:56 PM CDT [facility] ACETONE GC Negative Negative mg/dL 03/22/2025 7:56 PM CDT [facility] METHYL ALCOHOL BLOOD Negative Negative mg/dL 03/22/2025 7:56 PM CDT [facility] ISOPROPANOL Negative Negative mg/dL 03/22/2025 7:56 PM CDT [facility] ETHANOL 0.064(H) <=0.000 g/dL 03/22/2025 7:56 PM CDT [facility] Blood BLOOD SPECIMEN / Unknown Non-Lab Butterfly / Unknown 03/22/2025 3:50 PM CDT 03/22/2025 3:55 PM CDT Narrative [facility] - 03/22/2025 7:56 PM CDT Release to patient->Immediate Venkat Mcgregor MD SEND OUTS Final Res ult [facility] [address] [place] [address] [address] [place] [address], * ,SERUM QUALITATIVE (03/22/2025 2:04 PM CDT) ,SERU M Negative Negative 03/22/2025 2:33 PM CDT [facility] Blood BLOOD SPECIMEN / Unknown IV Start / Unknown 03/22/2025 2:04 PM CDT 03/22/2025 2:10 PM CDT Venkat Mcgregor MD CHEMISTRY Final Res ult [facility] [address] [place] [address] * (ABNORMAL) ETHANOL SERUM OR PLASMA (03/22/2025 2:04 PM CDT) ETHANOL 0.117(H) <0.010 g/dL 03/22/2025 2:39 PM CDT [facility] Blood BLOOD SPECIMEN / Unknown IV Start / Unknown 03/22/2025 2:04 PM CDT 03/22/2025 2:10 PM CDT Venkat Mcgregor MD CHEMISTRY Final Res ult Performing Organization Address [facility] Co de Phone Number [address] [address] * MAGNESIUM (03/22/2025 2:04 PM CDT) MAGNESIUM 2.0 1.7 - 2.2 mg/dL 03/22/2025 9:21 PM CDT [facility] Blood BLOOD SPECIMEN / Unknown IV Start / Unknown 03/22/2025 2:04 PM CDT 03/22/2025 2:10 PM CDT Tito Mar MD CHEMISTRY Final Result Performing Organization Address [facility] Co de Phone Number [address] [address] * LIPASE (03/22/2025 2:04 PM CDT) LIPASE 17.6 13.0 - 60.0 IU/L 03/22/2025 2:39 PM CDT [facility] Blood BLOOD SPECIMEN / Unknown IV Start / Unknown 03/22/2025 2:04 PM CDT 03/22/2025 2:10 PM CDT Venkat Mcgregor MD CHEMISTRY Final Res ult Performing Organization Address [facility] Co de Phone Number [address] [address] * (ABNORMAL) ACETAMINOPHEN (03/22/2025 2:04 PM CDT) ACETAMINOPHEN <5.0(L) 10.0 - 30.0 ug/mL 03/22/2025 3:44 PM CDT [facility] Blood BLOOD SPECIMEN / Unknown IV Start / Unknown 03/22/2025 2:04 PM CDT 03/22/2025 2:10 PM CDT Venkat Mcgregor MD CHEMISTRY Final Res ult Performing Organization Address [facility] Co de Phone Number [address] [address] * (ABNORMAL) SALICYLATE (03/22/2025 2:04 PM CDT) SALICYLATE 0.6(L) 15.0 - 30.0 mg/dL 03/22/2025 3:43 PM CDT [facility] Blood BLOOD SPECIMEN / Unknown IV Start / Unknown 03/22/2025 2:04 PM CDT 03/22/2025 2:10 PM CDT Venkat Mcgregor MD CHEMISTRY Final Res ult Performing Organization Address [facility] Co de Phone Number [address] [address] * (ABNORMAL) HEPATIC FUNCTION PANEL (03/22/2025 2:04 PM CDT) ALBUMIN 5.5(H) 4.0 - 4.9 g/dL 03/22/2025 2:39 PM CDT [facility] PROTEIN,TOTAL 9.1(H) 6.0 - 8.0 g/dL 03/22/2025 2:39 PM CDT [facility] BILIRUBIN,TOTAL 0.8 0.0 - 1.2 mg/dL 03/22/2025 2:39 PM CDT [facility] BILIRUBIN,DIRECT 0.3(H) 0.0 - 0.2 mg/dL 03/22/2025 2:39 PM CDT [facility] BILIRUBIN,INDIRE CT 0.5 0.2 - 0.8 mg/dL 03/22/2025 2:39 PM CDT [facility] ALK PHOSPHATASE 81 35 - 104 IU/L 03/22/2025 2:39 PM CDT [facility] ALT (SGPT) 97(H) 10 - 35 IU/L 03/22/2025 2:39 PM CDT [facility] AST (SGOT) 85(H) 10 - 35 IU/L 03/22/2025 2:39 PM CDT [facility] Blood BLOOD SPECIMEN / Unknown IV Start / Unknown 03/22/2025 2:04 PM CDT 03/22/2025 2:10 PM CDT Venkat Mcgregor MD CHEMISTRY Final Res ult [address] [address] * EKG 12 LEAD (03/22/2025 1:23 PM CDT) Interpretation Sinus tachycardia Rightward axis Borderline ECG BEYOND NOW Ventricular Rate 129 BPM [facility]YOND NOW Atrial Rate 129 BPM BEYOND NOW P-R Interval 140 ms BEYOND NOW QRS Duration 84 ms BEYOND NOW QT 298 ms BEYOND NOW QTc 436 ms BEYOND NOW P [place] 74 degrees BEYOND NOW R [place] 102 degrees BEYOND NOW T [place] 60 degrees BEYOND NOW 03/22/2025 1:23 PM CDT 03/31/2025 4:48 AM CDT us [facility] Ed Triage EKG ORD Final Result Performing Organization Address City/[facility]/ZIP Co de Phone Number BEYOND NOW [place], [place] * SCAN-CARDIAC STRIP (03/22/2025 12:00 AM CDT) Narrative 03/22/2025 12:00 AM CDT Ordered by an unspecified provider. us Other Clinical Staff OTHER Final Resul t * SCAN-CARDIAC STRIP (03/22/2025 12:00 AM CDT) Narrative 03/22/2025 12:00 AM CDT Ordered by an unspecified provider. us Other Clinical Staff OTHER Final Resul t from Last 3 Months Insurance HP HP Advance Directives * Full Code (Latest Code Status on File) Date Activated Date Inactivated Comments 03/22/2025 5:23 PM 03/23/2025 2:06 PM Question Answer Comments Code Status Discussion: Reviewed Preferences Care Teams Stock Worker Relationship Specialty Start Date End Date Pcp, No . PCP - General 11/28/21
--- NOTE | 2025-05-10 18:08 | CRLHL7_ITS ---
For Patients: As a result of the Century Cures Act, medical imaging exams and procedure reports are released immediately into your electronic medical record. You may view this report before your referring provider. If you have questions, please contact your health care provider. INDICATION: Unresponsive. TECHNIQUE: Chest 1 view. COMPARISON: None. FINDINGS: Cardiovascular and mediastinum: Heart size and vasculature are normal in caliber and appearance. Lungs and pleural spaces: Lungs are clear. No pleural effusion, or pneumothorax. Bones and soft tissues: Unremarkable for age. IMPRESSION: No evidence of an acute pulmonary process. Dictated by Quinn Richter MD @ 05/10/2025 6:34:26 PM (Electronically Signed)
--- NOTE | 2025-05-10 18:08 | CRLHL7_ITS ---
For Patients: As a result of the Cures Act, medical imaging exams and procedure reports are released immediately into your electronic medical record. You may view this report before your referring provider. If you have questions, please contact your health care provider. INDICATION: Unresponsive. TECHNIQUE: CT cervical spine without contrast. COMPARISON: None. FINDINGS: Vertebrae: Alignment is normal. There are no fractures or suspicious bony lesions. Discs and facet joints: Disc spaces and facets are within normal limits. Extraspinal findings: Prevertebral soft tissues, visualized airway, and visualized lungs are unremarkable. IMPRESSION: Unremarkable cervical spine CT. Please note that all CT scans at this facility use dose modulation, iterative reconstruction, and/or weight-based dosing when appropriate to reduce radiation dose to as low as reasonably achievable. Dictated by Bandar Arrington MD @ 05/10/2025 6:57:07 PM (Electronically Signed)
--- NOTE | 2025-05-10 18:08 | ED_ITS ---
HPI - General Adult General Time Seen by Provider: 18:08 Date Seen: 05/10/25 Chief complaint: Altered Mental Status Stated complaint: Unresponsive Time Seen by Provider: 05/10/25 18:08 Source: EMS and RN notes reviewed Mode of arrival: EMS Limitations: altered mental status History of Present Illness HPI narrative: Paris is a 19-year-old female with a history of alcohol use disorder, withdrawal syndrome, hepatitis, hyponatremia who comes to the emergency room via EMS after she was found unresponsive at home with 6 beer per cans next to her bed. EMS placed an IV, placed a nasal trumpet and transported and a to the ED. here in the emergency room we do not have any other information but nursing staff did do glucose which was 131. She has not received any medications at this point. Time: Mom does arrive and it does appear that Paris has just been released from rehab for alcohol. Her boyfriend spoke to her this morning at 0700 hours. Neighbor's her dogs barking at approximately noon but and was not found until this evening unresponsive in her bed. Mom states that there was an empty bottle of nortriptyline in the room but does not think her daughter would have taken it. Related Data Home Medications ?Medication ?Instructions ?Recorded ?Confirmed doxycycline hyclate 100 mg capsule 100 mg PO Q24H 05/0406/23/24 norethindrone 1 mg-ethinyl 1 tab PO DAILY 05/19/24 estradiol 20 mcg (21)-iron 75 mg (7) tablet ([place] Fe 11/23 ()) Previous Rx's ?Medication ?Instructions ?Recorded naltrexone 50 mg tablet 50 mg PO DAILY #30 tabs 06/05 11/27 omeprazole 20 mg capsule,delayed 20 mg PO DAILY #30 ca ps 06/24/24 release sertraline 50 mg tablet 50 mg PO DAILY #30 tabs 06/05 11/27 Allergies Allergy/AdvReac Type Severity Reaction Status Date / Time No Known Drug Allergies Allergy Verified 05/19/24 11:54 Review of Systems Status of ROS: Reports: unobtainable due to mental status [facility] Medical History Anxiety ?F41.9 - Anxiety disorder, unspecified (ICD-10) Alcoholic gastritis ?K29.20 - Alcoholic gastritis without bleeding (ICD-10) Alcohol use disorder, moderate, dependence ?F10.20 - Alcohol dependence, uncomplicated (ICD-10) PTSD (post-traumatic stress disorder) ?F43.10 - Post-traumatic stress disorder, unspecified (ICD-10) Social History Narrative: Living with her mother. Undergoing court mandated outpatient alcohol treatment. 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 Denies tobacco use. Alcohol use as above. Denies recreational drug use although tox screen was positive for marijuana. She tells me she does not know how that got there. What is your current living situation?: I presently have a place to live Problems where you live: no known problems Problems where you live details: NO KNOWN PROBLEMS In the past 12 months, utilities in danger of being shut off: no In past 12 months, lack of transportation kept you from medical appts, meetings, work, or getting things needed for daily living: no In the past 12 mos, have been you worried that your food would run out before you had money to buy more?: never true In the past 12 mos, the food you bought just didn't last and you didn't have money to buy more?: never true Highest level of school completed/degree received: high school graduate Smoking Status: Never smoker Do you use any of these nicotine containing products: None Nicotine containing products detail: DISPOSIBLE VAPE; NEW VAPE EVERY 2-3 WEEKS. Second hand tobacco smoke exposure: No How often do you have a drink containing alcohol: 4 or more times a week Alcohol type: hard liquor Alcohol type details: SHIKHA[employer]S VODKA How many standard drinks containing alcohol do you have on a typical day: 10 or more How often do you have six or more drinks on one occasion: Weekly AUDIT-C Alcohol total score: 11 Non-prescribed substance use: denies use Caffeine: Yes (RED BULL) How often does anyone, including family, friends and others, physically hurt you : decline to answer How often does anyone, including family, friends and others, insult or talk down to you: decline to answer How often does anyone, including family, friends and others, threaten you with harm: decline to answer How often does anyone, including family, friends and others, scream or curse at you: decline to answer service: No Exam Narrative: Exam Narrative: Patient is unresponsive, however when lifting her arm over her head her arm slides to the side and the arm does not fall on face. Her face is symmetrical. She is protecting her airway. She has normal respirations at this time. Her pupils are quite large dilated at 8 mm and constrict to approximately 4 mm. Oral cavity with moist mucous membranes. She is keeping her mouth and lips closed. Heart with a tachycardic rate but normal rhythm. Lungs are clear bilaterally. Abdomen is soft nontender. With blankets remove she does start shivering. No evidence of trauma head is atraumatic normocephalic. Abdomen is soft. Lower extremities without edema. No response with the stimulation of the instep. I do remove a tampon with dark red blood from the vagina. Const: Vital Signs, click to edit/add: Vital Signs - 24 hr 05/10/25 18:03 05/10/25 18:04 05/10/25 18:06 Temperature 97.6 F Pulse Rate 134 H 137 H Pulse Rate [Pulse Oximeter] 144 H Respiratory Rate 23 26 H 16 Blood Pressure 134/99 H Blood Pressure [Le ft Upper Arm] 136/93 H Pulse Oximetry 99 98 98 Oxygen Delivery Me thod Room Air Room Air Oxygen Flow Rate 05/10/25 18:15 05/10/25 18:33 05/10/25 18:50 Temperature Pulse Rate 136 H 99 Pulse Rate [Pulse Oximeter] Respiratory Rate 18 Blood Pressure 125/96 H 123/83 Blood Pressure [Le ft Upper Arm] Pulse Oximetry 80 L [facility] Intubated Oxygen Flow Rate 10 05/10/25 18:51 05/10/25 18:52 05/10/25 18:56 Temperature Pulse Rate 102 H 103 H 137 H Pulse Rate [Pulse Oximeter] Respiratory Rate 19 15 6 L Blood Pressure 119/84 129/100 H Blood Pressure [Le ft Upper Arm] Pulse Oximetry 100 100 100 Oxygen Delivery Ne thod Oxygen Flow Rate 05/10/25 18:57 05/10/25 18:59 05/10/25 19:00 Temperature Pulse Rate 139 H 133 H 135 H Pulse Rate [Pulse Oximeter] Respiratory Rate 0 L 22 16 Blood Pressure 145/102 H 137/93 H Blood Pressure [Le ft Upper Arm] Pulse Oximetry 100 100 100 Oxygen Delivery Me thod Intubated Oxygen Flow Rate 10 05/10/25 19:02 05/10/25 19:07 05/10/25 19:12 Temperature Pulse Rate 134 H 127 H 107 H Pulse Rate [Pulse Oximeter] Respiratory Rate 9 L 9 L 9 L Blood Pressure 131/85 130/82 120/79 Blood Pressure [Le ft Upper Arm] Pulse Oximetry 100 100 100 Oxygen Delivery Me thod Oxygen Flow Rate 05/10/25 19:15 05/10/25 19:16 05/10/25 19:21 Temperature Pulse Rate 107 H 106 H 111 H Pulse Rate [Pulse Oximeter] Respiratory Rate 10 L 11 L 11 L Blood Pressure 128/93 H 133/97 H Blood Pressure [Le ft Upper Arm] Pulse Oximetry 100 100 100 Oxygen Delivery Me thod Intubated Oxygen Flow Rate 10 05/10/25 19:26 05/10/25 19:30 05/10/25 19:31 Temperature Pulse Rate 110 H 109 H 109 H Pulse Rate [Pulse Oximeter] Respiratory Rate 11 L 11 L 10 L Blood Pressure 133/96 H 136/99 H Blood Pressure [Le ft Upper Arm] Pulse Oximetry 100 100 100 Oxygen Delivery Me thod Intubated Oxygen Flow Rate 10 05/10/25 19:36 05/10/25 19:42 05/10/25 19:45 Temperature Pulse Rate 110 H 111 H 109 H Pulse Rate [Pulse Oximeter] Respiratory Rate 8 L 9 L 10 L Blood Pressure 135/100 H 132/97 H Blood Pressure [Le ft Upper Arm] Pulse Oximetry 100 100 100 Oxygen Delivery Me thod Oxygen Flow Rate 05/10/25 19:47 Temperature Pulse Rate 108 H Pulse Rate [Pulse Oximeter] Respiratory Rate 11 L Blood Pressure 133/93 H Blood Pressure [Le ft Upper Arm] Pulse Oximetry 100 Oxygen Delivery Me thod Oxygen Flow Rate Documenting provider has reviewed patient's vital signs: yes Course Course ED Course: At this time patient is protecting her airway. Pupils are quite dilated but reacts briskly to light. She does have a odor of ketones present. Blood sugar is 131. At this time will do stat head and cervical spine CT continue to monitor and be prepared for intubation should she compromise her airway. Have ordered CBC, comprehensive, acetaminophen, salicylate , alcohol, lactate, urinalysis, hCG. Reevaluation(s) Reevaluation #1: I was notified that patient had some retching. Have ordered Zofran 4 mg. I do reassess patient and she does have some sonorous respirations. Therefore I have had the decision to intubate even though vital signs are currently stable. She is not waking up at this time. Vital Signs Vital signs: Initial Vital Signs Pulse Rate 134 H 05/10/25 18:03 Respiratory Rate 23 05/10/25 18:03 Blood Pressure 134/99 H 05/10/25 18:03 Blood Pressure Mean 110 H 05/10/25 18:03 Pulse Oximetry 99 05/10/25 18:03 Oxygen Delivery Method Room Air 05/10/25 18:03 Vital Signs Pulse Rate 134 H 05/10/25 18:03 Respiratory Rate 23 05/10/25 18:03 Blood Pressure 134/99 H 05/10/25 18:03 Pulse Oximetry 99 05/10/25 18:03 Oxygen Delivery Method Room Air 05/10/25 18:03 Temperature 97.6 F 05/10/25 18:06 Pulse Rate 108 H 05/10/25 19:47 Respiratory Rate 11 L 05/10/25 19:47 Blood Pressure 133/93 H 05/10/25 19:47 Pulse Oximetry 100 05/10/25 19:47 Oxygen Delivery Method Intubated 05/10/25 19:30 Oxygen Flow Rate 10 05/10/25 19:30 Medications Administered Medications: Generic Name Dose Route Start Last Admin Trade Name Freq PRN Reason Stop Dose Admin Propofol 1,000 mg in 100 mls @ 9 mls/hr 05/10/25 20:21 05/11/25 11:39 Propofol IVPB 35 mcg/kg/min CONT PRN 12.6 mls/hr 25 MCG/KG/MIN Administration Propofol 1,000 mg in 100 mls @ 9 mls/hr 05/10/25 20:32 05/11/25 11:41 Propofol IVPB 25 mcg/kg/min CONT PRN 9 mls/hr Sedation Administration 25 MCG/KG/MIN Discontinued Medications Generic Name Dose Route Start Last Admin Trade Name Freq PRN Reason Stop Dose Admin Etomidate 20 mg 05/10/25 19:59 05/10/25 20:15 Etomidate 2 Mg/Ml Inj IVP 05/10/25 20:00 20 mg ONCE ONE Administration Fentanyl 50 mcg 05/10/25 19:59 05/10/25 20:09 Fentanyl 100 Mcg/2 Ml Inj IVP 05/10/25 20:00 50 mcg ONCE ONE Administration Fentanyl 50 mcg 05/10/25 20:21 05/10/25 19:00 Fentanyl 100 Mcg/2 Ml Inj IVP 05/10/25 20:22 50 mcg ONCE ONE Administration Sodium Chloride 1,000 mls @ 1,000 mls/hr 05/10/25 18:10 05/10/25 20:14 0.9 % Sodium Chloride 1000 Ml IV 05/10/25 19:09 Infused .Q1H NATHANAEL Infusion Sodium Chloride 1,000 mls @ 1,000 mls/hr 05/10/25 19:14 05/11/25 18:05 0.9 % Sodium Chloride 1000 Ml IV 05/10/25 20:13 Infused .Q1H NATHANAEL Infusion Ondansetron HCl 4 mg 05/10/25 18:25 05/10/25 18:30 Ondansetron 2 Mg/Ml Inj IVP 05/10/25 18:26 4 mg ONCE ONE Administration Propofol 100 mg 05/10/25 19:59 05/10/25 18:55 Propofol 10 Mg/Ml Inj IVP 05/10/25 20:00 100 mg ONCE ONE Administration Succinylcholine Chloride 120 mg 05/10/25 19:59 05/10/25 18:45 Succinylcholine 20 Mg/Ml Inj IVP 05/10/25 20:00 120 mg ONCE ONE Administration Medical Decision Making [facility] Narrative Medical decision making narrative: 1. Unresponsive-suspect alcohol intoxication given history and presence of beer cans next to bed. Alcohol level currently pending. Patient currently intubated maintained on propofol drip with doses of fentanyl.. 2. Possible nortriptyline overdose-patient has a negative U tox positive only for marijuana. QT interval on EKG within normal limits. 3. Possible seizure-patient noted to have left eye deviation and unusual shaking lasting less than 10 seconds x1. No history of seizure disorder. No further episodes. 4. Disposition -patient will be ground ALS transfer to [facility] ICU excepting physician Dr Valencia and Virgilio. Patient noted to have alcohol level of 0.05, drug tox positive for marijuana only. Differential diagnosis includes reaction to marijuana, nortriptyline overdose, he has seizure. Additional increase of propofol fall to 45 mcg and additional dose of fentanyl 50 mcg IV. Patient has remained stable throughout her entire stay in the ED. Medical Records Medical records reviewed: Yes I reviewed the patient's medical records Lab Data Lab results reviewed: Yes I reviewed the patient's lab results Labs: Lab Results 05/10/25 05/10/25 Range/Units 18:08 18:48 WBC 4.38 L (4.50-11.00) K/uL RBC 4.39 (4.00-5.20) m/uL Hgb 13.9 (12.0-16.0) gm/dL Hct 41.3 (33.0-51.0) % MCV 94 (80-100) fL MCH 32 (26-34) pg MCHC 34 (32-36) gm/dL RDW Coeff of Efrain 12.8 (11.5-15.5) % Plt Count 341 (140-440) K/uL Neut % (Auto) 46.3 (42.0-72.0) % Lymph % (Auto) 48.2 H (20-44) % [place] % (Auto) 4.6 (0.0-11.0) % Eos % (Auto) 0.0 (0.0-7.0) % Baso % (Auto) 0.7 (0.0-3.0) % Neut # (Auto) 2.00 (1.7-7.0) K/uL Lymph # (Auto) 2.10 (0.90-2.90) K/uL [place] # (Auto) 0.20 (0.00-0.90) K/UL Eos # (Auto) 0.00 (0.00-0.50) K/uL Baso # (Auto) 0.00 (0.00-0.30) K/uL Abs Immat Gran (auto) 0.00 (0.00-0.30) K/uL Imm/Tot Granulo (auto) 0.2 % Sodium 143 (135-149) mmol/L Potassium 4.0 (3.6-5.1) mmol/L Chloride 104 (96-114) mmol/L Carbon Dioxide 26 (20-32) mmol/L Anion Gap 13 (7-15) mEq/L BUN 10 (5-24) mg/dL Creatinine 0.6 (0.6-1.2) mg/dL Estimated GFR 133 ml/min Glucose 124 H (60-115) mg/dL Lactate 4.0 H (0.5-1.9) mmol/L Calcium 9.2 (8.7-10.8) mg/dL Magnesium 1.9 (1.5-2.6) mg/dL Total Bilirubin 0.8 (0.1-1.5) mg/dL AST 56 H (12-35) U/L ALT 36 H (4-35) U/L Alkaline Phosphatase 61 (40-150) U/L C-Reactive Protein < 0.5 L (0.5-1.0) mg/dL Total Protein 7.8 (6.0-8.3) g/dL Albumin 4.6 (3.3-5.0) g/dL Urine HCG, Qual Negative (Negative) Salicylates < 1.0 L (1.0-10) mg/dL Urine Opiates Screen Negative (Negative) Ur Oxycodone Screen Negative (Negative) Urine Methadone Screen Negative (Negative) Acetaminophen < 10.0 (10.0-30.0) ug/mL Ur Barbiturates Screen Negative (Negative) U Tricyclic Antidepress Negative (Negative) Ur Phencyclidine Scrn Negative (Negative) Ur Amphetamines Screen Negative (Negative) U Methamphetamines Scrn Negative (Negative) U Benzodiazepines Scrn Negative (Negative) Urine Cocaine Screen Negative (Negative) U Marijuana (THC) Screen POSITIVE A (Negative) Ur Drug Screen Comment See Note Ethyl Alcohol 0.05 H (0.01-0.03) % Imaging Data cervical spine ct: Attestation: I have reviewed the pertinent imaging results. My impression: I do not note any abnormalities. Radiologist's impression: Vertebrae: Alignment is normal. There are no fractures or suspicious bony lesions. Discs and facet joints: Disc spaces and facets are within normal limits. Extraspinal findings: Prevertebral soft tissues, visualized airway, and visualized lungs are unremarkable. IMPRESSION: Unremarkable cervical spine CT. CT scan - head: Attestation: I have reviewed the pertinent imaging results. My impression: No abnormalities noted. Radiologist's impression: CSF spaces: Within normal limits for age. Brain parenchyma and extra-axial spaces: The kiser-white differentiation is normal. No sign of mass, hemorrhage, or midline shift. No extra-axial fluid collection. Skull base and calvarium: The visualized paranasal sinuses and mastoid air cells demonstrate no acute or significant findings. The visualized orbits are grossly unremarkable. No skull fractures. IMPRESSION: Unremarkable noncontrast head CT. Chest x-ray: Attestation: I have reviewed the pertinent imaging results. My impression: No obvious infiltrate Radiologist's impression: Cardiovascular and mediastinum: Heart size and vasculature are normal in caliber and appearance. Lungs and pleural spaces: Lungs are clear. No pleural effusion, or pneumothorax. Bones and soft tissues: Unremarkable for age. IMPRESSION: No evidence of an acute pulmonary process. Post intubation chest x-ray: Attestation: I have reviewed the pertinent imaging results. My impression: ET tube tip approximately 2.75 cm above ambar. No evidence of infiltrates or pneumothorax. Radiologist's impression: Cardiovascular and mediastinum: Cardiomediastinal silhouette is within normal limits. Lungs and pleural spaces: ET tube terminates approximately 3 centimeters above the ambar. Mild perihilar peribronchial cuffing. No evidence of pleural effusion. No pneumothorax identified. Bones and soft tissues: Unremarkable. IMPRESSION: ETT terminates proximally 3 centimeters above the ambar. Otherwise unchanged. ECG Data Attestation: I personally reviewed and interpreted this ECG as follows: Interpretation: EKG by my read shows sinus tachycardia at a rate of 140. I do not note any acute ST or T-wave changes. QT interval her and NM interval within normal limits Second EKG by my read shows sinus tachycardia rate of 109. No acute ST or T- wave changes noted. QT interval within normal limits. Critical Care Time Critical Care Time Critical Care Time: Yes Attestation: The patient required my highest level preparedness to intervene emergently and I personally spent this critical care time directly and personally managing the patient. This critical care time included: Obtaining a history; Examining the patient; Pulse oximetry; Ordering and reviewing of studies; Arranging urgent treatment with development of a management plan; Evaluation of patients response to treatment; Frequent reassessment discussions with other providers. This critical care time was performed to assess and manage the high probability of imminent life-threatening deterioration that could result in multiorgan failure. It was exclusive of separate billable procedures and treating other patients and teaching time. Total Critical Care Time in Minutes: 90 Discharge Plan Discharge Clinical Impression: Obtunded, Overdose of nortriptyline [facility] Condition: Stable Procedures Intubation Pre procedure diagnosis: Obtunded, episode of retching. Possible overdose Post procedure diagnosis: Possible overdose Verification/time out: correct patient, correct procedure and time out performed Name of person performing procedure: Eduarda Edmonds Sedative: Etomidate Mg Given: 20 paralytic: Succinylcholine Mg Given: 120 Laryngoscope: Syeda Assist Device Used: fiber optic device ET Tube Size: 7.5 ET Tube Uncuffed: No Tube Secured Depth (cm): 22 Tube Secured Location: teeth Tube Placement Confirmation: visualized tube passing through cords, equal breath sounds bilaterally and confirmation by capnometry Estimated blood loss (if any): none Intubation Complications: none Patient Tolerated Procedure: well Additional Comments: Pre oxygenation with nasal cannula oxygen and then bag-valve mask. Syeda blade used to visualize via fiberoptic. Bronchoscope used with a 7.5 ET tube inserted without difficulty visualized through the cords. Breath sounds auscult ated bilaterally. Post intubation: Propofol 100 mg IV followed by propofol drip at 25mcg when patient began breathing against BVM. Heart rate had initially been at 0102 prior to intubation now 130. Did increased propofol fall to 35 mcg an added 15 mcg of fentanyl with improvement of heart rate. Blood pressure maintained during the procedure.
--- NOTE | 2025-05-10 18:08 | CRLHL7_ITS ---
For Patients: As a result of the Century Cures Act, medical imaging exams and procedure reports are released immediately into your electronic medical record. You may view this report before your referring provider. If you have questions, please contact your health care provider. INDICATION: Unresponsive. TECHNIQUE: CT head without contrast. COMPARISON: None. FINDINGS: CSF spaces: Within normal limits for age. Brain parenchyma and extra-axial spaces: The kiser-white differentiation is normal. No sign of mass, hemorrhage, or midline shift. No extra-axial fluid collection. Skull base and calvarium: The visualized paranasal sinuses and mastoid air cells demonstrate no acute or significant findings. The visualized orbits are grossly unremarkable. No skull fractures. IMPRESSION: Unremarkable noncontrast head CT. Please note that all CT scans at this facility use dose modulation, iterative reconstruction, and/or weight-based dosing when appropriate to reduce radiation dose to as low as reasonably achievable. Dictated by Bandar Arrington MD @ 05/10/2025 6:47:46 PM (Electronically Signed)
[2025-05-10] MEDS: ONDANSETRON 2 MG/ML inj 4 MG IVP (18:30)
[2025-05-10] MEDS: SUCCINYLCHOLINE 20 MG/ML INJ 120 MG IVP (18:45)
[2025-05-10] MEDS: PROPOFOL 10 MG/ML INJ 100 MG IVP (18:55)
[2025-05-10 18:56] LABS: Lactate* 4.0 mmol/L (0.5-1.9)
[2025-05-10 18:58] LABS: Hematocrit 41.3 % (33.0-51.0); Hemoglobin* 13.9 gm/dL (12.0-16.0); Immature Granulocytes Pct Auto 0.2 %; Mean Corpuscular HGB Conc 34 gm/dL (32-36); Mean Corpuscular Hemoglobin 32 pg (26-34); Mean Corpuscular Volume 94 fL (80-100); RDW Coefficient of Variation % 12.8 % (11.5-15.5); Red Blood Count 4.39 m/uL (4.00-5.20); White Blood Count* 4.38 K/uL (4.50-11.00)
[2025-05-10] MEDS: propofoL 1,000 MG/100 ML ML 12.6 MG IVPB (19:00)
--- NOTE | 2025-05-10 19:00 | CRLHL7_ITS ---
For Patients: As a result of the Century Cures Act, medical imaging exams and procedure reports are released immediately into your electronic medical record. You may view this report before your referring provider. If you have questions, please contact your health care provider. INDICATION: ET tube placement, Portable Chest. TECHNIQUE: Chest 1 view. COMPARISON: May 10, 2025. FINDINGS: Cardiovascular and mediastinum: Cardiomediastinal silhouette is within normal limits. Lungs and pleural spaces: ET tube terminates approximately 3 centimeters above the ambar. Mild perihilar peribronchial cuffing. No evidence of pleural effusion. No pneumothorax identified. Bones and soft tissues: Unremarkable. IMPRESSION: ETT terminates proximally 3 centimeters above the ambar. Otherwise unchanged. Dictated by Bandar Arrington MD @ 05/10/2025 7:33:37 PM (Electronically Signed)
[2025-05-10 19:10] LABS: Immature Granulocytes Abs Auto 0.00 K/uL (0.00-0.30); Lymphocytes Absolute Auto 2.10 K/uL (0.90-2.90); Slide Review Reflex No
[2025-05-10 19:25] LABS: Ur HCG Qualitative* Negative (Negative)
[2025-05-10 19:28] LABS: Albumin* 4.6 g/dL (3.3-5.0); Chloride* 104 mmol/L (96-114)
[2025-05-10 19:29] LABS: Potassium* 4.0 mmol/L (3.6-5.1); Sodium* 143 mmol/L (135-149)
[2025-05-10 19:30] LABS: Cannabinoid Screen Urine POSITIVE (Negative); Methamphetamines Screen Urine Negative (Negative); Tricyclic Antidepressant Urine Negative (Negative)
[2025-05-10 19:31] LABS: Alanine Aminotransferase* 36 U/L (4-35); Alkaline Phosphatase* 61 U/L (40-150); Anion Gap 13 mEq/L (7-15); Aspartate Amino Transferase* 56 U/L (12-35); Bilirubin Total* 0.8 mg/dL (0.1-1.5); Blood Urea Nitrogen* 10 mg/dL (5-24); Carbon Dioxide* 26 mmol/L (20-32); Creatinine* 0.6 mg/dL (0.6-1.2); Estimated Glomerular Filt Rate 133 ml/min; Total Protein* 7.8 g/dL (6.0-8.3)
[2025-05-10 19:32] LABS: Calcium* 9.2 mg/dL (8.7-10.8); Ethanol* 0.05 % (0.01-0.03); Glucose* 124 mg/dL (60-115)
[2025-05-10 19:36] LABS: Acetaminophen* < 10.0 ug/mL (10.0-30.0); Salicylate* < 1.0 mg/dL (1.0-10)
[2025-05-10] MEDS: ETOMIDATE 2 MG/ML inj 20 MG IVP (20:15)
[2025-05-11] MEDS: propofoL 1,000 MG/100 ML ML 12.6 MG IVPB (11:39)
[2025-05-11] MEDS: propofoL 1,000 MG/100 ML ML 9 MG IVPB (11:41)
--- NOTE | 2025-05-14 12:18 | ED.NURSE ---
Pt's mother called inquiring about pt belongings status, stating that a necklace and other jewelry were missing. Pt's mother stated pt was transferred and she suspects jewelry was either misplaced by our staff or the paramedics. I verified no patient belongings were in the med room or with the registration lost and found bin. Reviewing the pt chart, there is a nursing note with states all belongings sent with pt on transfer. I advised pt's mother that the nursing note stated all belongings were sent with pt on transfer. Pt's mother stated The nurse was Kenzie Ennis, I know her and then made another partially unintelligible comment about the paramedics or our staff misplacing a Jessica necklace. I advised the pt's mother that she could contact the patient advocate if she had more concerns and I could not do anything further on my end to locate these items. I provided pt advocate number to the pt's mother and she stated she would call the pt advocate.
== END 2025-05-10 20:00 | disposition short-term general hospital (02) ==
PROVIDERS: Emergency Provider Family Medicine
DX: R40.1 Stupor (principal); T43.011A Poisoning by tricyclic antidepressants, accidental (unintentional), initial encounter
CPT/HCPCS: 31500; 36415; 70450; 71045; 72125; 80053; 80143; 80179; 80306; 81001; 81025; 82077; 83605; 83735; 85025; 86140; 93005; 99285; 99291; J0330; J2405; J2704; J3010; J7030

== ENCOUNTER 2025-05-10 19:41 | Outpatient (CLI) | payer OTHER, SELFPAY | END 2025-05-10 19:42 | disposition home or self-care (01) | LOC: AMB 05-13 10:38 | PROVIDERS: Visit Provider Family Medicine | DX: R40.1 Stupor (principal); T43.011A Poisoning by tricyclic antidepressants, accidental (unintentional), initial encounter | CPT/HCPCS: A0425; A0434 ==